=== PATIENT | female | born 1985 | race Caucasian/White ===

== ENCOUNTER 2018-09-09 12:11 | Emergency (ER) | payer SELFPAY ==
[~2018-09-09] VITALS: Ht 154.9 cm; Wt 91.8 kg
[2018-09-09 12:34] VITALS: BP 135/73; TEMP 97.7
[2018-09-09 16:16] LABS: BASO % 0.3 % (0.0-2.0); EOS # 0.1 (0.0-0.7); GRAN # 7.4 (1.4-6.5); HEMATOCRIT 43.2 % (37.0-47.0); HEMOGLOBIN 14.4 g/dl (12.5-16.0); LYMPH # 1.7 (1.2-3.4); LYMPH % 16.9 % (20.0-51.0); MEAN CELL VOLUME 93 fl (80.0-100.0); MEAN CORPUSCULAR HEMOGLOBIN 31 pg (27.0-31.0); MEAN CORPUSCULAR HGB CONC 33 g/dl (33.0-37.0); MEAN PLATELET VOLUME 10.9 fl (7.4-10.4); MONO # 0.5 (0.1-0.6); MONO % 5.5 % (1.7-9.3); PLATELET COUNT 200 K/mm3 (130-400); RED BLOOD COUNT 4.63 M/mm3 (4.10-5.30); REDCELL DISTRIBUTION WIDTH-CV 14.2 % (11.5-14.5)
[2018-09-09 16:28] LABS: ALANINE AMINOTRANSFERASE 13 U/L (9-52); ALKALINE PHOSPHATASE 89 U/L (50-136); ANION GAP 10 mmol/L (7-16); AST,SGOT 21 U/L (15-37); BILIRUBIN,TOTAL 0.4 mg/dL (0.0-1.0); BLOOD UREA NITROGEN 12 mg/dL (7-17); CALCIUM 9.1 mg/dL (8.4-10.2); CARBON DIOXIDE 23 mmol/L (22-30); CHLORIDE 106 mmol/L (98-107); CREATININE, serum 0.78 (0.52-1.25); GLUCOSE 101 mg/dL (74-106); LIPASE 95 U/L (23-300); POTASSIUM 4.1 mmol/L (3.4-5.0); SODIUM 140 mmol/L (137-145); TOTAL PROTEIN 7.1 gm/dL (6.4-8.2)
[2018-09-09 16:30] LABS: C-REACTIVE PROTEIN 0.5 mg/dL (0.0-0.9)
[2018-09-09 16:38] LABS: TROPONIN-I < 0.012 ng/mL (0.000-0.035)
[2018-09-09] MEDS ORDERED: ULTRAM 50MG TAB50 MG PO (16:53)
[2018-09-09 17:06] VITALS: PULSE 96
== END 2018-09-09 17:06 | disposition home or self-care (01) ==
LOC: COL.ER 12:11
PROVIDERS: Emergency Medicine
DX: R07.89 Other chest pain (principal); F43.10 Post-traumatic stress disorder, unspecified; F32.9 Major depressive disorder, single episode, unspecified; F41.9 Anxiety disorder, unspecified; Z90.710 Acquired absence of both cervix and uterus